=== PATIENT | male | born 1985 | race Caucasian/White ===

== ENCOUNTER 2021-06-27 08:00 | Outpatient (CLI) | payer OTHER | END 2021-06-27 23:59 | disposition home or self-care (01) | LOC: LAB.S 08:00 | PROVIDERS: ATTEND Physician Assistant Medical | DX: J34.89 Other specified disorders of nose and nasal sinuses (principal); R05.1 Acute cough; R50.9 Fever, unspecified; Z20.822 Contact with and (suspected) exposure to COVID-19 ==